=== PATIENT | male | born 1965 | race Caucasian/White ===

== ENCOUNTER 2017-02-16 07:00 | Outpatient (CLI) | payer OTHER ==
[2017-02-16 09:12] LABS: ALBUMIN 4.2 g/dL (3.4-5.0); CALCIUM 9.5 mg/dL (8.5-10.1); CARBON DIOXIDE 28.6 mmol/L (21-32); CREATININE 0.8 mg/dL (0.6-1.3); POTASSIUM 4.6 mmol/L (3.5-5.1); THYROID STIMULATING HORMONE 3.36 uIU/mL (0.34-3.76); TOTAL BILIRUBIN 0.6 mg/dL (0.0-1.0); TOTAL PROTEIN, SERUM 8.1 g/dL (6.4-8.2)
== END 2017-02-16 21:40 | disposition home or self-care (01) ==
LOC: MLB 07:00
PROVIDERS: ATTEND Internal Medicine Geriatric Medicine
DX: I10 Essential (primary) hypertension (principal); E11.9 Type 2 diabetes mellitus without complications; E78.5 Hyperlipidemia, unspecified
CPT/HCPCS: 36415; 80053; 82306; 83036; 84443

== ENCOUNTER 2017-07-11 10:26 | Inpatient (IN) | payer OTHER ==
[~2017-07-11] VITALS: Ht 167.6 cm; Wt 88.5 kg
[2017-07-11 10:31] VITALS: BP 156/96
--- NOTE | 2017-07-11 10:45 | NUR ---
52/M PRESENT TO ER C/O GENERALIZED WEAKNESS x 10 DAYS. DENIES N/V/D; SKIN IS PINK/WARM/DRY; AAOX4 WITH EVEN AND STEADY GAIT; LUNGS CLEAR BL; HR EVEN AND REGULAR; PT DENIES ANY FEVER, CP, SOB, OR COUGH AT THIS TIME; PATIENT STATES PAIN OF 0/10 AT THIS TIME; VSS; PATIENT POSITIONED FOR COMFORT; HOB ELEVATED; BEDRAILS UP X2; BED DOWN. ER MADE AWARE OF PT STATUS. Addendum: 07/11/17 at 1208 by [email or web address] PT STS CHEST PAIN THIS MORNING BUT WHEN ARRIVAL DENIES CHEST PAIN.
--- NOTE | 2017-07-11 10:48 | NUR ---
Patient being evaluated by DR THORNTON at bedside.
[2017-07-11] MEDS ORDERED: ASPIRIN 325 MG TAB PO ONE (10:55)
[2017-07-11] MEDS ORDERED: NACL 0.9% 1,000 ML IV ONE (10:55)
--- NOTE | 2017-07-11 11:00 | NUR ---
X RAY AT BEDSIDE.
--- NOTE | 2017-07-11 11:05 | NUR ---
INSERTED IV CATH 20G RAC;PT TOLERATED PROCEDUR WELL.IV PATENT& INTACT.
--- NOTE | 2017-07-11 11:05 | NUR ---
LAB AT BEDSIDE.
[2017-07-11 11:14] LABS: BASOPHILS # (AUTO) 0.1 K/uL (0.00-0.22); BASOPHILS % (AUTO) 1.3 % (0.0-2.0); EOSINOPHILS # (AUTO) 0.1 K/uL (0-0.4); EOSINOPHILS % (AUTO) 1.2 % (0.0-4.0); HEMATOCRIT 54.9 % (36-52); HEMOGLOBIN 17.5 g/dL (12.0-18.0); LYMPHOCYTES # (AUTO) 3.1 K/uL (2.0-11.5); LYMPHOCYTES % (AUTO) 35.5 % (20.5-51.1); MEAN CORPUSCULAR HEMOGLOBIN 29 pg (27-31); MEAN CORPUSCULAR HGB CONC 32 g/dL (33-37); MEAN CORPUSCULAR VOLUME 92 fL (80-94); MONOCYTES # (AUTO) 0.6 K/uL (0.8-1.0); MONOCYTES % (AUTO) 6.9 % (1.7-9.3); NEUTROPHILS # (AUTO) 4.8 K/uL (1.8-7.7); NEUTROPHILS % (AUTO) 55.1 % (42.2-75.2); PLATELET COUNT (AUTO) 234 K/uL (140-450); RED BLOOD CELL COUNT(AUTO) 5.98 MIL/uL (4.20-6.10); RED CELL DISTRIBUTION WIDTH 12.5 % (11.6-13.7); WHITE BLOOD COUNT (AUTO) 8.7 K/uL (4.8-10.8)
--- NOTE | 2017-07-11 11:16 | NUR ---
Patient appears to be resting comfortably in bed. BP145/78;DENIES HEADACHE OR DIZZINESS AT THIS TIME. Respirations even and unlabored.WILL CONTINUE TO MONITOR.
[2017-07-11 11:27] LABS: ANION GAP 15.5 (8-16); CARBON DIOXIDE 26.6 mmol/L (21-32); CREATININE 0.9 mg/dL (0.7-1.3); POTASSIUM 4.1 mmol/L (3.5-5.1)
[2017-07-11 11:33] LABS: ALBUMIN 4.3 g/dL (3.4-5.0); TOTAL BILIRUBIN 0.5 mg/dL (0.0-1.0)
[2017-07-11 11:45] LABS: CREATINE KINASE MB 0.8 ng/mL (0-3.6)
--- NOTE | 2017-07-11 11:47 | NUR ---
Patient being reevaluated by DR THORNTON at bedside.
--- NOTE | 2017-07-11 12:12 | NUR ---
GAVE REPORT TO BLOSSOM SÁNCHEZ.
--- NOTE | 2017-07-11 12:12 | NUR ---
Patient will be admitted to care of DR BILLINGSLEY. Admited to TELE. Will go to [id number]. Belongings list completed. Report to BLOSSOM SÁNCHEZ.
[2017-07-11] MEDS ORDERED: METF500T PO (12:18)
[2017-07-11] MEDS ORDERED: LISI30TA6 PO (12:18)
--- NOTE | 2017-07-11 12:20 | NUR ---
RECEIVED REPORT FROM ER NURSE VIA TELEPHONE. WILL GET ROOM READY AND AWAIT FOR PT ARRIVAL TO ROOM 114.
[2017-07-11] MEDS: NACL 0.9% 1,000 ML IV SCH ×2 (12:37→22:37)
[2017-07-11] MEDS ORDERED: NITROGLYCERIN 0.4 MG TAB SL PRN (12:40)
[2017-07-11] MEDS ORDERED: DEXTROSE 50% 50 ML SYR IVP PRN (12:40)
[2017-07-11] MEDS ORDERED: ONDANSETRON 4 MG/2 ML VIAL IVP PRN (12:40)
[2017-07-11] MEDS ORDERED: HYDROcodone/APAP 7.5/325 MG 1 TAB PO PRN (12:40)
[2017-07-11] MEDS ORDERED: ACETAMINOPHEN 325 MG TAB PO PRN (12:40)
[2017-07-11] MEDS ORDERED: ATORVASTATIN 20 MG TAB PO SCH (13:00)
[2017-07-11 13:10] LABS: PROTHROMBIN TIME 10.6 secs (10.8-13.4)
[2017-07-11 13:18] LABS: FREE T4 (FREE THYROXINE) 1.24 ng/dL (0.76-1.46); MAGNESIUM 2.2 mg/dL (1.8-2.4); PHOSPHORUS 5.5 mg/dL (2.5-4.9); THYROID STIMULATING HORMONE 3.11 uIU/mL (0.34-3.74)
--- NOTE | 2017-07-11 13:30 | NUR ---
PT ARRIVED TO UNIT VIA GURNEY FROM ER ACCOMPANIED BY RN AND TECH. PT AMBULATED TO BED WITH STANDBY ASSIST. PT IS AAOX4. INTRODUCED SELF AND UPDATED BOARD. ID BAND ON AND TELE MONITOR APPLIED. MRSA OF NARES OBTAINED. VS: WNL. PT DENIES CHEST PAIN AT THIS TIME.
[2017-07-11 14:00] VITALS: BP 132/81
[2017-07-11] MEDS ORDERED: CALCIUM ACETATE 667 MG TAB PO SCH (14:51)
--- NOTE | 2017-07-11 15:57 | NUR ---
PT IN ROOM WITH RESEARCH CENTER DIRECTOR RIGHT NOW. PT IS NOT IN ANY DISTRESS AT THIS TIME. WILL CONTINUE TO MONITOR.
[2017-07-11] MEDS: metFORMIN 500 MG TAB PO SCH (17:19)
[2017-07-11] MEDS: BLOOD GLUCOSE MONITORING 1 DEV DEV FS SCH ×2 (17:19→20:30)
[2017-07-11] MEDS: METOPROLOL 25 MG TAB PO SCH (17:19)
--- NOTE | 2017-07-11 17:19 | NUR ---
OBTAINED URINE SAMPLE. PT VOIDED 350ML. PT IS REQUESTING TO EAT DINNER. INFORMED THAT TRAY WILL BE ARRIVING. ADMINISTERED MEDS. PT TOLERATED WELL. PT DENIES CHEST PAIN AT THIS TIME. WILL CONTINUE TO MONITOR.
--- NOTE | 2017-07-11 19:25 | NUR ---
ENDORSED PT TO AIRPLANE DISPATCHER NURSE AT BEDSIDE FOR CONTINUITY OF CARE. PT IN STABLE CONDITION. VISITOR AT BEDSIDE.
--- NOTE | 2017-07-11 19:26 | NUR ---
RECEIVED REPORT FROM AM NURSE. PT IS AOX4, ABLE TO MAKE NEEDS KNOWN. WITH RESPIRATIONS CLEAR AND UNLABORED. NO COMPLAINTS OF PAIN AT THIS TIME. WITH AN IV TO THE R HAND, INTACT AND PATENT. INITIAL ASSESSMENT DONE. REORIENTED PT TO THE UNIT, VERBALIZED UNDERSTANDING. WILL CONTINUE TO MONITOR. ALL NEEDS ATTENDED. CALL LIGHT WITHIN REACH. SAFETY CHECKS IN PLACE.
[2017-07-11 19:40] LABS: BILIRUBIN,URINE NEGATIVE (NEGATIVE); BLOOD, URINE NEGATIVE (NEGATIVE); COLOR,URINE YELLOW (YELLOW); LEUKOCYTE ESTERASE ,URINE NEGATIVE (NEGATIVE); NITRITE, URINE NEGATIVE (NEGATIVE); UGLUCOSE 3+ (NEGATIVE)
[2017-07-11 19:41] LABS: APPEARANCE,URINE CLEAR (CLEAR)
[2017-07-11 20:00] VITALS: BP 139/89
[2017-07-11] MEDS: DOCUSATE SODIUM 100 MG GELCAP PO SCH (20:27)
[2017-07-11] MEDS: INSULIN LISPRO SLIDING SCALE 100 UNITS/ML VIAL SUBQ PRN (20:28)
--- NOTE | 2017-07-11 20:30 | NUR ---
DUE MEDS GIVEN, WELL TOLERATED BY PATIENT. WILL CONTINUE TO MONITOR FOR ANY CHANGES.
[2017-07-11] MEDS ORDERED: LORazepam 0.5 MG TAB PO SCH (22:50)
[2017-07-12] VITALS: BP 131/91
--- NOTE | 2017-07-12 | NUR ---
VITALS STABLE. NO S/S OF DISTRESS. NO COMPLAINTS OF PAIN. WILL CONTINUE TO MONITOR FOR ANY CHANGES.
[2017-07-12] MEDS: NACL 0.9% 1,000 ML IV SCH (01:16)
[2017-07-12 04:00] VITALS: BP 132/68
--- NOTE | 2017-07-12 04:00 | NUR ---
VITALS STABLE. NO S/S OF DISTRESS. NO COMPLAINTS OF PAIN. SCD'S APPLIED.
[2017-07-12 06:12] LABS: BASOPHILS # (AUTO) 0.4 K/uL (0.00-0.22); BASOPHILS % (AUTO) 4.3 % (0.0-2.0); EOSINOPHILS # (AUTO) 0.2 K/uL (0-0.4); EOSINOPHILS % (AUTO) 2.2 % (0.0-4.0); HEMATOCRIT 48.4 % (36-52); HEMOGLOBIN 16.2 g/dL (12.0-18.0); LYMPHOCYTES # (AUTO) 2.8 K/uL (2.0-11.5); MEAN CORPUSCULAR HEMOGLOBIN 31 pg (27-31); MEAN CORPUSCULAR HGB CONC 33 g/dL (33-37); MEAN CORPUSCULAR VOLUME 91 fL (80-94); MONOCYTES # (AUTO) 0.8 K/uL (0.8-1.0); MONOCYTES % (AUTO) 9.3 % (1.7-9.3); NEUTROPHILS % (AUTO) 50.2 % (42.2-75.2); PLATELET COUNT (AUTO) 213 K/uL (140-450); RED BLOOD CELL COUNT(AUTO) 5.29 MIL/uL (4.20-6.10); RED CELL DISTRIBUTION WIDTH 12.6 % (11.6-13.7); WHITE BLOOD COUNT (AUTO) 8.2 K/uL (4.8-10.8)
[2017-07-12] MEDS: INSULIN LISPRO SLIDING SCALE 100 UNITS/ML VIAL SUBQ PRN (06:22)
--- NOTE | 2017-07-12 06:22 | NUR ---
CHECKED BLOOD SUGAR - 154. GAVE 2 UNITS INSULIN, DUE MEDS GIVEN, WELL TOLERATED BY PT. WILL CONTINUE TO MONITOR FOR ANY CHANGES.
[2017-07-12] MEDS ORDERED: PANTOPRAZOLE 40 MG TABEC PO SCH (06:30)
[2017-07-12] MEDS: BLOOD GLUCOSE MONITORING 1 DEV DEV FS SCH ×2 (06:30→11:30)
[2017-07-12 06:37] LABS: CARBON DIOXIDE 25.1 mmol/L (21-32); CREATININE 0.7 mg/dL (0.7-1.3); POTASSIUM 4.1 mmol/L (3.5-5.1)
[2017-07-12 06:54] LABS: CHOL/HDL RATIO 8.1 (1-4.5); PHOSPHORUS 5.4 mg/dL (2.5-4.9)
--- NOTE | 2017-07-12 07:10 | NUR ---
ENDORSED TO AM SHIFT NURSE FOR CONTINUITY OF CARE, IN STABLE CONDITION.
--- NOTE | 2017-07-12 07:13 | NUR ---
RECEIVED REPORT FROM SMALL ENGINE TECHNICIAN NURSE, PT IS A/OX4, AMBULATORY, IV IS ON THE RT HAND, PATENT, INTACT, FLUSHING WELL, NO S/S OF RESPIRATORY OR DISTRESS NOTED, DISCUSSED PLAN OF CARE WITH PT, PT VERBALIZED UNDERSTANDING, SAFETY/FALL PRECAUTIONS ARE IN PLACE, CALL LIGHT WITHIN REACH, WILL CONTINUE TO MONITOR.
[2017-07-12 08:00] VITALS: BP 145/90
--- NOTE | 2017-07-12 08:15 | NUR ---
PATIENT HAS BEEN SCREENED AND CATEGORIZED MODERATE NUTRITION RISK. PATIENT WILL BE SEEN WITHIN 3-5 DAYS OF ADMISSION. 07/14/17-07/16/[address]
[2017-07-12] MEDS: METOPROLOL 25 MG TAB PO SCH (08:46)
[2017-07-12] MEDS: metFORMIN 500 MG TAB PO SCH (08:46)
--- NOTE | 2017-07-12 08:46 | NUR ---
DUE MEDICATIONS GIVEN, PT TOLERATED WELL, CALL LIGHT WITHIN REACH.
[2017-07-12] MEDS: DOCUSATE SODIUM 100 MG GELCAP PO SCH (08:47)
[2017-07-12] MEDS ORDERED: ECOTRIN 81 MG TABEC PO SCH (09:00)
[2017-07-12] MEDS ORDERED: LISINOPRIL 10 MG TAB PO SCH (09:00)
[2017-07-12] MEDS ORDERED: ATORVASTATIN 20 MG TAB PO SCH (09:00)
--- NOTE | 2017-07-12 10:30 | NUR ---
PT RESTING IN BED AT THIS TIME, CALL LIGHT WITHIN REACH.
[2017-07-12 12:00] VITALS: BP 131/79
--- NOTE | 2017-07-12 12:00 | NUR ---
PT OFF UNIT TO HAVE STRESS TEST DONE.
[2017-07-12] MEDS ORDERED: METO25TA PO (13:35)
[2017-07-12] MEDS ORDERED: ATOR20TA40 PO (13:35)
[2017-07-12] MEDS ORDERED: ASPI81TA28 PO (13:35)
--- NOTE | 2017-07-12 14:30 | NUR ---
PT RETURNED TO UNIT FROM STRESS TEST. PT BLOOD GLUCOSE PENDING, PT DID NOT WANT BLOOD GLUCOSE CHECKED.
--- NOTE | 2017-07-12 14:30 | NUR ---
STRESS DONE. PATIENT BACK TO HIS ROOM IN STABLE CONDITION
--- NOTE | 2017-07-12 14:52 | NUR ---
STRESS TEST DONE
--- NOTE | 2017-07-12 14:55 | NUR ---
DISCHARGE INSTRUCTIONS GIVEN, ID WRIST BAND REMOVED, IV REMOVED, CATHETER TIP INTACT. PT STABLE UPON DISCHARGE.
== END 2017-07-12 15:00 | disposition home or self-care (01) | DRG 392 ==
LOC: MED 10:26 → MTU 12:14
PROVIDERS: ADMIT Family Medicine; ATTEND Family Medicine
DX: K21.9 Gastro-esophageal reflux disease without esophagitis (principal); E11.65 Type 2 diabetes mellitus with hyperglycemia; K76.0 Fatty (change of) liver, not elsewhere classified; G90.9 Disorder of the autonomic nervous system, unspecified; E83.39 Other disorders of phosphorus metabolism; I10 Essential (primary) hypertension; I73.9 Peripheral vascular disease, unspecified; E78.5 Hyperlipidemia, unspecified; R42 Dizziness and giddiness; R53.1 Weakness; R74.0 Nonspecific elevation of levels of transaminase and lactic acid dehydrogenase [LDH]; Z86.73 Personal history of transient ischemic attack (TIA), and cerebral infarction without residual deficits; Z90.49 Acquired absence of other specified parts of digestive tract
CPT/HCPCS: 36415; 70450; 71010; 76705; 80048; 80053; 81003; 82550; 82553; 82948; 83036; 83690; 83735; 83880; 84100; 84439; 84443; 84484; 85025; 85379; 85610; 85730; 87081; 87086; 93005; 93017; 93880; 93925; 93970; 96360; 99285; J1815; J7030; Q0092

== ENCOUNTER 2017-12-17 06:48 | Outpatient (CLI) | payer OTHER ==
[~2017-12-17 06:48] MED LIST: ASPI-1173 PO; ATOR20TA40 PO; LISI30TA6 PO; METF500T PO; METO25TA PO
[2017-12-17 07:30] LABS: BASOPHILS # (AUTO) 0.4 K/uL (0.00-0.22); BASOPHILS % (AUTO) 4.8 % (0.0-2.0); EOSINOPHILS # (AUTO) 0.2 K/uL (0-0.4); EOSINOPHILS % (AUTO) 1.9 % (0.0-4.0); HEMATOCRIT 49.2 % (36-52); HEMOGLOBIN 16.3 g/dL (12.0-18.0); LYMPHOCYTES # (AUTO) 2.5 K/uL (2.0-11.5); LYMPHOCYTES % (AUTO) 27.8 % (20.5-51.1); MEAN CORPUSCULAR HEMOGLOBIN 30 pg (27-31); MEAN CORPUSCULAR HGB CONC 33 g/dL (33-37); MEAN CORPUSCULAR VOLUME 91 fL (80-94); MONOCYTES # (AUTO) 0.8 K/uL (0.8-1.0); MONOCYTES % (AUTO) 9.1 % (1.7-9.3); NEUTROPHILS # (AUTO) 5.2 K/uL (1.8-7.7); NEUTROPHILS % (AUTO) 56.4 % (42.2-75.2); PLATELET COUNT (AUTO) 227 K/uL (140-450); RED BLOOD CELL COUNT(AUTO) 5.42 MIL/uL (4.20-6.10); RED CELL DISTRIBUTION WIDTH 12.5 % (11.6-13.7); WHITE BLOOD COUNT (AUTO) 9.1 K/uL (4.8-10.8)
[2017-12-17 08:08] LABS: ALBUMIN 3.9 g/dL (3.4-5.0); ANION GAP 13.8 (8-16); CARBON DIOXIDE 26.4 mmol/L (21-32); CHOL/HDL RATIO 4.1 (1-4.5); CREATININE 0.8 mg/dL (0.7-1.3); POTASSIUM 4.2 mmol/L (3.5-5.1); TOTAL BILIRUBIN 0.5 mg/dL (0.0-1.0)
[2017-12-18 10:08] LABS: MICROALBUMIN, UR RANDOM 7.9 ug/mL (Not Estab.)
== END 2017-12-17 19:45 | disposition home or self-care (01) ==
LOC: MLB 06:48
PROVIDERS: ATTEND Internal Medicine Geriatric Medicine
DX: E11.9 Type 2 diabetes mellitus without complications (principal); E78.5 Hyperlipidemia, unspecified; R74.0 Nonspecific elevation of levels of transaminase and lactic acid dehydrogenase [LDH]; E55.9 Vitamin D deficiency, unspecified
CPT/HCPCS: 36415; 80053; 82043; 82306; 83036; 84154; 85025

== ENCOUNTER 2018-04-22 06:48 | Outpatient (CLI) | payer OTHER ==
[2018-04-22 07:07] LABS: BASOPHILS # (AUTO) 0.1 K/uL (0.00-0.22); BASOPHILS % (AUTO) 0.7 % (0.0-2.0); EOSINOPHILS # (AUTO) 0.2 K/uL (0-0.4); EOSINOPHILS % (AUTO) 1.9 % (0.0-4.0); HEMATOCRIT 47.3 % (36-52); LYMPHOCYTES # (AUTO) 3.1 K/uL (2.0-11.5); LYMPHOCYTES % (AUTO) 37.9 % (20.5-51.1); MEAN CORPUSCULAR HEMOGLOBIN 31 pg (27-31); MEAN CORPUSCULAR HGB CONC 34 g/dL (33-37); MEAN CORPUSCULAR VOLUME 90.9 fL (80-94); MONOCYTES # (AUTO) 0.7 K/uL (0.8-1.0); MONOCYTES % (AUTO) 8.2 % (1.7-9.3); NEUTROPHILS # (AUTO) 4.2 K/uL (1.8-7.7); NEUTROPHILS % (AUTO) 51.3 % (42.2-75.2); PLATELET COUNT (AUTO) 217 K/uL (140-450); RED CELL DISTRIBUTION WIDTH 13.4 % (11.6-13.7); WHITE BLOOD COUNT (AUTO) 8.2 K/uL (4.8-10.8)
[2018-04-22 07:20] LABS: APPEARANCE,URINE HAZY (CLEAR); BILIRUBIN,URINE NEGATIVE (NEGATIVE); BLOOD, URINE NEGATIVE (NEGATIVE); COLOR,URINE YELLOW (YELLOW); LEUKOCYTE ESTERASE ,URINE NEGATIVE (NEGATIVE); NITRITE, URINE NEGATIVE (NEGATIVE); UGLUCOSE NEGATIVE (NEGATIVE)
[2018-04-22 07:30] LABS: ANION GAP 14.4 (8-16); CARBON DIOXIDE 27.7 mmol/L (21-32); CREATININE 0.9 mg/dL (0.7-1.3); POTASSIUM 4.1 mmol/L (3.5-5.1); TOTAL BILIRUBIN 0.6 mg/dL (0.0-1.0)
== END 2018-04-22 19:34 | disposition home or self-care (01) ==
LOC: MLB 06:48
PROVIDERS: ATTEND Internal Medicine Geriatric Medicine
DX: E11.9 Type 2 diabetes mellitus without complications (principal); E73.9 Lactose intolerance, unspecified; E78.5 Hyperlipidemia, unspecified; I10 Essential (primary) hypertension; K21.9 Gastro-esophageal reflux disease without esophagitis
CPT/HCPCS: 36415; 80053; 81003; 83036; 83690; 85025

== ENCOUNTER 2018-07-08 07:01 | Outpatient (CLI) | payer OTHER ==
[2018-07-08 08:10] LABS: ALBUMIN 3.6 g/dL (3.4-5.0); CARBON DIOXIDE 29.3 mmol/L (21-32); CHOL/HDL RATIO 3.8 (1-4.5); CREATININE 0.8 mg/dL (0.7-1.3); POTASSIUM 4.3 mmol/L (3.5-5.1); TOTAL BILIRUBIN 0.4 mg/dL (0.0-1.0)
== END 2018-07-08 22:14 | disposition home or self-care (01) ==
LOC: MLB 07:01
PROVIDERS: ATTEND Internal Medicine Geriatric Medicine
DX: E11.9 Type 2 diabetes mellitus without complications (principal); E78.5 Hyperlipidemia, unspecified; I10 Essential (primary) hypertension
CPT/HCPCS: 36415; 80053; 83036

== ENCOUNTER 2019-01-31 13:12 | Emergency (ER) | payer OTHER ==
[~2019-01-31] VITALS: Ht 167.6 cm; Wt 86.2 kg
[2019-01-31 13:12] VITALS: BP 151/84
--- NOTE | 2019-01-31 13:12 | NUR ---
PATIENT AMBULATED TO ER CHAIR E.
--- NOTE | 2019-01-31 13:44 | NUR ---
Patient transferred to bed 8 for further care. RN evaluating patient at bedside.
--- NOTE | 2019-01-31 13:50 | NUR ---
PT IS A 53 Y/O MALE WHO PRESENTS TO THE ED C/O HIGH BLOOD SUGAR SINCE TODAY. WAS 243 ON TRIAGE. PT DENIES PAIN AT THIS TIME. PT DENIES CP, SOB, N/V/D. PT AWAKE AND ALERT, RR EVEN/UNLABORED.PT REPOSITIONED FOR COMFORT, BED IN LOWEST POSITION. ER MD DR. ARAGON NOTIFIED. WILL CONTINUE TO MONITOR. PMH---HTN, PRE-DM (243 ON TRIAGE) NKA
[2019-01-31 14:10] LABS: BASOPHILS # (AUTO) 0.1 K/uL (0.00-0.22); BASOPHILS % (AUTO) 0.6 % (0.0-2.0); EOSINOPHILS # (AUTO) 0.2 K/uL (0-0.4); EOSINOPHILS % (AUTO) 2.1 % (0.0-4.0); HEMATOCRIT 46.9 % (36-52); HEMOGLOBIN 15.9 g/dL (12.0-18.0); LYMPHOCYTES # (AUTO) 3.5 K/uL (2.0-11.5); LYMPHOCYTES % (AUTO) 39.5 % (20.5-51.1); MEAN CORPUSCULAR HEMOGLOBIN 31 pg (27-31); MEAN CORPUSCULAR HGB CONC 34 g/dL (33-37); MEAN CORPUSCULAR VOLUME 90.1 fL (80-94); MONOCYTES # (AUTO) 0.7 K/uL (0.8-1.0); NEUTROPHILS # (AUTO) 4.3 K/uL (1.8-7.7); NEUTROPHILS % (AUTO) 49.8 % (42.2-75.2); PLATELET COUNT (AUTO) 250 K/uL (140-450); RED BLOOD CELL COUNT(AUTO) 5.21 MIL/uL (4.20-6.10); RED CELL DISTRIBUTION WIDTH 13.6 % (11.6-13.7); WHITE BLOOD COUNT (AUTO) 8.7 K/uL (4.8-10.8)
[2019-01-31 15:01] LABS: ALBUMIN 3.9 g/dL (3.4-5.0); ANION GAP 13.9 (8-16); CARBON DIOXIDE 28.7 mmol/L (21-32); CREATININE 0.9 mg/dL (0.7-1.3); POTASSIUM 4.6 mmol/L (3.5-5.1); TOTAL BILIRUBIN 0.4 mg/dL (0.0-1.0)
[2019-01-31 15:05] LABS: APPEARANCE,URINE CLEAR (CLEAR); BILIRUBIN,URINE NEGATIVE (NEGATIVE); BLOOD, URINE NEGATIVE (NEGATIVE); LEUKOCYTE ESTERASE ,URINE NEGATIVE (NEGATIVE); NITRITE, URINE NEGATIVE (NEGATIVE); PH,URINE 5.5 (5.0-9.0); UGLUCOSE 1+ (NEGATIVE)
[2019-01-31 15:11] LABS: COLOR,URINE STRAW (YELLOW)
[2019-01-31 15:33] VITALS: BP 148/80
--- NOTE | 2019-01-31 15:33 | NUR ---
Patient discharged with v/s stable. Written and verbal after care instructions given and explained. Patient verbalized understanding. Ambulatory with steady gait. All questions addressed prior to discharge. Advised to follow up with PMD.
== END 2019-01-31 15:33 | disposition home or self-care (01) ==
LOC: MED 13:12
DX: E11.65 Type 2 diabetes mellitus with hyperglycemia (principal); I10 Essential (primary) hypertension; Z79.84 Long term (current) use of oral hypoglycemic drugs; Z79.82 Long term (current) use of aspirin; Z79.899 Other long term (current) drug therapy
CPT/HCPCS: 36415; 80053; 81003; 82803; 85025; 99283

== ENCOUNTER 2019-05-12 05:54 | Outpatient (CLI) | payer OTHER ==
[2019-05-12 07:39] LABS: BASOPHILS # (AUTO) 0.1 K/uL (0.00-0.22); BASOPHILS % (AUTO) 0.7 % (0.0-2.0); EOSINOPHILS # (AUTO) 0.2 K/uL (0-0.4); EOSINOPHILS % (AUTO) 2.3 % (0.0-4.0); HEMATOCRIT 47.9 % (36-52); HEMOGLOBIN 16.3 g/dL (12.0-18.0); LYMPHOCYTES # (AUTO) 2.7 K/uL (2.0-11.5); LYMPHOCYTES % (AUTO) 33.2 % (20.5-51.1); MEAN CORPUSCULAR HEMOGLOBIN 31 pg (27-31); MEAN CORPUSCULAR HGB CONC 34 g/dL (33-37); MEAN CORPUSCULAR VOLUME 90.2 fL (80-94); MONOCYTES # (AUTO) 0.6 K/uL (0.8-1.0); MONOCYTES % (AUTO) 7.5 % (1.7-9.3); NEUTROPHILS # (AUTO) 4.6 K/uL (1.8-7.7); NEUTROPHILS % (AUTO) 56.3 % (42.2-75.2); PLATELET COUNT (AUTO) 244 K/uL (140-450); RED BLOOD CELL COUNT(AUTO) 5.31 MIL/uL (4.20-6.10); RED CELL DISTRIBUTION WIDTH 13.8 % (11.6-13.7); WHITE BLOOD COUNT (AUTO) 8.1 K/uL (4.8-10.8)
[2019-05-12 08:35] LABS: ANION GAP 14.4 (8-16); CARBON DIOXIDE 24.9 mmol/L (21-32); CHOL/HDL RATIO 5.6 (1-4.5); CREATININE 0.8 mg/dL (0.7-1.3); POTASSIUM 4.3 mmol/L (3.5-5.1); TOTAL BILIRUBIN 0.6 mg/dL (0.0-1.0)
[2019-05-13 08:06] LABS: MICROALBUMIN, UR RANDOM 14.8 ug/mL (Not Estab.)
== END 2019-05-12 21:00 | disposition home or self-care (01) ==
LOC: MLB 05:54
PROVIDERS: ATTEND Internal Medicine Geriatric Medicine
DX: Z12.11 Encounter for screening for malignant neoplasm of colon (principal); E11.9 Type 2 diabetes mellitus without complications; E55.9 Vitamin D deficiency, unspecified; E78.5 Hyperlipidemia, unspecified
CPT/HCPCS: 36415; 80053; 82043; 82272; 83036; 85025

== ENCOUNTER 2019-08-30 11:06 | Emergency (ER) | payer OTHER ==
[~2019-08-30] VITALS: Ht 167.6 cm; Wt 86.2 kg
[2019-08-30 11:12] VITALS: BP 139/84
--- NOTE | 2019-08-30 11:23 | NUR ---
54 Y/O M PRESENTED TO ER FOR NAUSEA AND DIZZINESS. WHILE AT WORK PT TOOK AN "UNKNOWN" MEDICATION FOR CHEST CONGESTION. AFTER TAKING MEDICATION PT STARTED FEELING DIZZY. HE ATE A SALAD, AND IMMEDIATELY VOMITED AFTER EATING. PT FEELS WEAK AND "NOT RIGHT." PT STILL FEELS NAUSEA. DENIES ANY PAIN, PAIN 0/10. BLOOD SUGAR 289. HOB ELEVATED, BED IN LOWEST POSITION, SIDE RAIL UP X1. ERMD MADE AWARE OF PT STATUS. ALLERGIES: NKA. MED HX: DM AND HTN
--- NOTE | 2019-08-30 11:50 | NUR ---
DR. ROJAS AT PT BEDSIDE.
[2019-08-30] MEDS ORDERED: ASPIRIN 81 MG TAB.CHEW PO ONE (12:20)
--- NOTE | 2019-08-30 13:17 | NUR ---
LAB AT BEDSIDE
--- NOTE | 2019-08-30 13:22 | NUR ---
PT RESTING IN BED ON CELL PHONE. VSS. WILL CONTINUE TO MONITOR.
[2019-08-30 13:37] LABS: BASOPHILS % (AUTO) 0.5 % (0.0-2.0); EOSINOPHILS # (AUTO) 0.1 K/uL (0-0.4); EOSINOPHILS % (AUTO) 1.2 % (0.0-4.0); HEMATOCRIT 45.8 % (36-52); HEMOGLOBIN 15.4 g/dL (12.0-18.0); LYMPHOCYTES # (AUTO) 2.1 K/uL (2.0-11.5); LYMPHOCYTES % (AUTO) 25.5 % (20.5-51.1); MEAN CORPUSCULAR HEMOGLOBIN 31 pg (27-31); MEAN CORPUSCULAR HGB CONC 34 g/dL (33-37); MEAN CORPUSCULAR VOLUME 91.7 fL (80-94); MONOCYTES # (AUTO) 0.7 K/uL (0.8-1.0); NEUTROPHILS # (AUTO) 5.4 K/uL (1.8-7.7); NEUTROPHILS % (AUTO) 64.8 % (42.2-75.2); PLATELET COUNT (AUTO) 230 K/uL (140-450); RED CELL DISTRIBUTION WIDTH 13.5 % (11.6-13.7); WHITE BLOOD COUNT (AUTO) 8.3 K/uL (4.8-10.8)
--- NOTE | 2019-08-30 13:37 | NUR ---
CALLED DIETARY TO FOLLOW UP WITH DIABETIC DIET
[2019-08-30 13:51] LABS: CARBON DIOXIDE 28.3 mmol/L (21-32); CREATININE 0.8 mg/dL (0.7-1.3); POTASSIUM 4.3 mmol/L (3.5-5.1)
--- NOTE | 2019-08-30 14:15 | NUR ---
PT RESTING IN BED WITH EYES CLOSED, EASILY ARROUSABLE. VSS. WILL CONTINUE TO MONITOR.
[2019-08-30 15:00] VITALS: BP 128/81
--- NOTE | 2019-08-30 15:00 | NUR ---
Patient discharged with v/s stable. Written and verbal after care instructions given and explained. Patient verbalized understanding. Ambulatory with steady gait. Work excuse provided for today. All questions addressed prior to discharge. Advised to follow up with PMD.
== END 2019-08-30 15:00 | disposition home or self-care (01) ==
LOC: MED 11:06
DX: R11.2 Nausea with vomiting, unspecified (principal); T50.905A Adverse effect of unspecified drugs, medicaments and biological substances, initial encounter; Y92.238 Other place in hospital as the place of occurrence of the external cause; E11.9 Type 2 diabetes mellitus without complications; I10 Essential (primary) hypertension; Z79.84 Long term (current) use of oral hypoglycemic drugs; Z79.899 Other long term (current) drug therapy
CPT/HCPCS: 36415; 71045; 80048; 84484; 85025; 93005; 99284; Q0092

== ENCOUNTER 2019-11-10 06:13 | Outpatient (CLI) | payer OTHER ==
[2019-11-10 08:28] LABS: ALBUMIN 3.9 g/dL (3.4-5.0); ANION GAP 12.2 (8-16); CARBON DIOXIDE 28.9 mmol/L (21-32); CREATININE 0.8 mg/dL (0.7-1.3); POTASSIUM 4.1 mmol/L (3.5-5.1); TOTAL BILIRUBIN 0.7 mg/dL (0.0-1.0)
== END 2019-11-10 20:10 | disposition home or self-care (01) ==
LOC: MLB 06:13
DX: E11.65 Type 2 diabetes mellitus with hyperglycemia (principal); I10 Essential (primary) hypertension
CPT/HCPCS: 36415; 80053; 83036

== ENCOUNTER → 2020-02-23 | Outpatient (CLI) | payer OTHER ==
[2020-02-23 07:32] LABS: BASOPHILS # (AUTO) 0.1 K/uL (0.00-0.22); BASOPHILS % (AUTO) 0.6 % (0.0-2.0); EOSINOPHILS # (AUTO) 0.1 K/uL (0-0.4); EOSINOPHILS % (AUTO) 1.3 % (0.0-4.0); HEMATOCRIT 48.4 % (36-52); HEMOGLOBIN 16.1 g/dL (12.0-18.0); LYMPHOCYTES # (AUTO) 3.3 K/uL (2.0-11.5); LYMPHOCYTES % (AUTO) 36.8 % (20.5-51.1); MEAN CORPUSCULAR HEMOGLOBIN 30 pg (27-31); MEAN CORPUSCULAR HGB CONC 33 g/dL (33-37); MEAN CORPUSCULAR VOLUME 88.9 fL (80-94); MONOCYTES # (AUTO) 0.6 K/uL (0.8-1.0); MONOCYTES % (AUTO) 6.9 % (1.7-9.3); NEUTROPHILS # (AUTO) 4.9 K/uL (1.8-7.7); NEUTROPHILS % (AUTO) 54.4 % (42.2-75.2); PLATELET COUNT (AUTO) 218 K/uL (140-450); RED BLOOD CELL COUNT(AUTO) 5.44 MIL/uL (4.20-6.10); RED CELL DISTRIBUTION WIDTH 13.8 % (11.6-13.7)
[2020-02-23 07:49] LABS: ALBUMIN 3.7 g/dL (3.4-5.0); ANION GAP 11.5 (8-16); CARBON DIOXIDE 30.9 mmol/L (21-32); CHOL/HDL RATIO 4.4 (1-4.5); CREATININE 0.9 mg/dL (0.6-1.3); POTASSIUM 4.4 mmol/L (3.5-5.1); TOTAL BILIRUBIN 0.6 mg/dL (0.0-1.0)
[2020-02-24 09:09] LABS: MICROALBUMIN, UR RANDOM 30.3 ug/mL (Not Estab.); PROSTATE SPEC AG TOTAL 0.6 ng/mL (0.0-4.0)
== END | disposition home or self-care (01) ==
LOC: MLB 06:27
PROVIDERS: ATTEND Family Medicine
DX: I10 Essential (primary) hypertension (principal); E55.9 Vitamin D deficiency, unspecified; E11.65 Type 2 diabetes mellitus with hyperglycemia; Z12.9 Encounter for screening for malignant neoplasm, site unspecified
CPT/HCPCS: 36415; 80053; 82043; 82306; 83036; 84153; 85025

== ENCOUNTER 2020-07-20 01:53 | Emergency (ER) | payer OTHER ==
[~2020-07-20] VITALS: Ht 167.6 cm; Wt 86.2 kg
[~2020-07-20 01:53] MED LIST changes: -ASPI-1173 PO; +ASPI-1856 PO
[2020-07-20 02:02] VITALS: BP 169/92
[2020-07-20 03:13] VITALS: BP 169/92
== END 2020-07-20 03:13 | disposition home or self-care (01) ==
LOC: MED 01:53
DX: K59.00 Constipation, unspecified (principal); E11.9 Type 2 diabetes mellitus without complications; K21.9 Gastro-esophageal reflux disease without esophagitis; I10 Essential (primary) hypertension; Z79.899 Other long term (current) drug therapy; Z79.84 Long term (current) use of oral hypoglycemic drugs
CPT/HCPCS: 74021; 99283

== ENCOUNTER 2020-10-09 08:00 | Emergency (ER) | payer OTHER ==
[~2020-10-09] VITALS: Ht 167.6 cm; Wt 81.6 kg
[2020-10-09 08:06] VITALS: BP 142/91
--- NOTE | 2020-10-09 08:10 | NUR ---
BIB SELF C/O R EAR, R FACE, RIGHT HEAD PAIN X 4 DAYS. BLOOD SUGAR 229 AT THIS TIME. COVID TESTED NEGATIVE. PMH:PRE DM,HTN
--- NOTE | 2020-10-09 08:51 | NUR ---
Patient being evaluated by physician at bedside.
--- NOTE | 2020-10-09 09:49 | NUR ---
Patient discharged with v/s stable. Written and verbal after care instructions given and explained. Patient alert, oriented and verbalized understanding of instructions. Ambulatory with steady gait. All questions addressed prior to discharge. ID band removed. Patient advised to follow up with PMD. Rx of ciprodex given. Patient educated on indication of medication including possible reaction and side effects. Opportunity to ask questions provided and answered.
[2020-10-09 09:50] VITALS: BP 142/91
== END 2020-10-09 09:49 | disposition home or self-care (01) ==
LOC: MED 08:00
DX: H60.91 Unspecified otitis externa, right ear (principal); I10 Essential (primary) hypertension; K21.9 Gastro-esophageal reflux disease without esophagitis; R73.03 Prediabetes; Z79.899 Other long term (current) drug therapy
CPT/HCPCS: 99283

== ENCOUNTER 2021-03-25 08:01 | Outpatient (CLI) | payer OTHER ==
[2021-03-25 08:52] LABS: BASOPHILS # (AUTO) 0.1 K/uL (0.00-0.22); BASOPHILS % (AUTO) 0.8 % (0.0-2.0); EOSINOPHILS # (AUTO) 0.1 K/uL (0-0.4); EOSINOPHILS % (AUTO) 1.7 % (0.0-4.0); HEMATOCRIT 49.5 % (36-52); HEMOGLOBIN 16.6 g/dL (12.0-18.0); LYMPHOCYTES # (AUTO) 2.7 K/uL (2.0-11.5); LYMPHOCYTES % (AUTO) 34.5 % (20.5-51.1); MEAN CORPUSCULAR HEMOGLOBIN 31 pg (27-31); MEAN CORPUSCULAR HGB CONC 34 g/dL (33-37); MEAN CORPUSCULAR VOLUME 91.8 fL (80-94); MONOCYTES # (AUTO) 0.6 K/uL (0.8-1.0); NEUTROPHILS # (AUTO) 4.4 K/uL (1.8-7.7); PLATELET COUNT (AUTO) 249 K/uL (140-450); RED BLOOD CELL COUNT(AUTO) 5.39 MIL/uL (4.20-6.10); RED CELL DISTRIBUTION WIDTH 13.3 % (11.6-13.7); WHITE BLOOD COUNT (AUTO) 7.9 K/uL (4.8-10.8)
[2021-03-25 09:17] LABS: APPEARANCE,URINE CLEAR (CLEAR); BILIRUBIN,URINE NEGATIVE (NEGATIVE); BLOOD, URINE NEGATIVE (NEGATIVE); COLOR,URINE YELLOW (YELLOW); LEUKOCYTE ESTERASE ,URINE NEGATIVE (NEGATIVE); NITRITE, URINE NEGATIVE (NEGATIVE); PH,URINE 5.5 (5.0-9.0); UGLUCOSE 3+ (NEGATIVE)
[2021-03-25 09:33] LABS: ALBUMIN 4.1 g/dL (3.4-5.0); ANION GAP 14.2 (8-16); CARBON DIOXIDE 26.3 mmol/L (21-32); CREATININE 0.7 mg/dL (0.6-1.3); POTASSIUM 4.5 mmol/L (3.5-5.1); RBC,URINE 0-5 /HPF (0-5); THYROID STIMULATING HORMONE 2.34 uIU/mL (0.34-3.74); TOTAL BILIRUBIN 0.5 mg/dL (0.0-1.0); WBC,URINE 0-5 /HPF (0-5)
[2021-03-25 10:12] LABS: CHOL/HDL RATIO 6.4 (1-4.5)
[2021-03-26 10:07] LABS: PROSTATE SPEC AG TOTAL 0.8 ng/mL (0.0-4.0)
== END 2021-03-25 19:21 | disposition home or self-care (01) ==
LOC: MLB 08:01
PROVIDERS: ATTEND Family Medicine
DX: Z12.5 Encounter for screening for malignant neoplasm of prostate (principal); I10 Essential (primary) hypertension; E11.65 Type 2 diabetes mellitus with hyperglycemia; E55.9 Vitamin D deficiency, unspecified; E11.69 Type 2 diabetes mellitus with other specified complication; K29.50 Unspecified chronic gastritis without bleeding
CPT/HCPCS: 36415; 80053; 81001; 82043; 82306; 83036; 84153; 84443; 85025

== ENCOUNTER 2021-06-11 08:07 | Outpatient (CLI) | payer OTHER | END 2021-06-11 20:22 | disposition home or self-care (01) | LOC: MLB 08:07 | PROVIDERS: ATTEND Internal Medicine | DX: B96.81 Helicobacter pylori [H. pylori] as the cause of diseases classified elsewhere (principal) | CPT/HCPCS: 82272 ==

== ENCOUNTER 2021-07-06 09:01 | Outpatient (CLI) | payer OTHER | END 2021-07-06 22:15 | disposition home or self-care (01) | LOC: MLB 09:01 | PROVIDERS: ATTEND Internal Medicine Gastroenterology | DX: B96.81 Helicobacter pylori [H. pylori] as the cause of diseases classified elsewhere (principal) | CPT/HCPCS: 36415 ==

== ENCOUNTER 2022-04-11 15:07 | Emergency (ER) | payer OTHER ==
[~2022-04-11] VITALS: Ht 167.6 cm; Wt 85.3 kg
[~2022-04-11 15:07] MED LIST changes: +METF-346 PO; -METF500T PO
[2022-04-11 15:18] VITALS: BP 162/94
--- NOTE | 2022-04-11 15:21 | NUR ---
Mary barnes in [facility] - 04/11/22 at 1523 by [email or web address].
--- NOTE | 2022-04-11 15:23 | NUR ---
TENT 1.
--- NOTE | 2022-04-11 15:33 | NUR ---
BIB SELF C/O DIFFICULTY BREATHING, MID CHEST PAIN, FATIGUE X TODAY. CIVID TESTED POSITIVE. PMH: PRE DM, HTN. DENIES N/V/D; SKIN IS PINK/WARM/DRY; AAOX4 WITH EVEN AND STEADY GAIT; LUNGS CLEAR BL; HR TACHY 105 AT THIS TIME; PT DENIES ANY FEVER OR COUGH AT THIS TIME.
--- NOTE | 2022-04-11 15:33 | NUR ---
BIB SELF C/O DIFFICULTY BREATHING, MID CHEST PAIN, FATIGUE X TODAY. CIVID TESTED POSITIVE. PMH: PRE DM, HTN. DENIES N/V/D; SKIN IS PINK/WARM/DRY; AAOX4 WITH EVEN AND STEADY GAIT; LUNGS CLEAR BL; HR EVEN AND REGULAR; PT DENIES ANY FEVER OR COUGH AT THIS TIME.
--- NOTE | 2022-04-11 15:56 | NUR ---
BLOOD SUGAR 273 AT THIS TIME.
[2022-04-11 16:35] LABS: BASOPHILS # (AUTO) 0.1 K/uL (0.00-0.22); EOSINOPHILS # (AUTO) 0.1 K/uL (0-0.4); EOSINOPHILS % (AUTO) 1.6 % (0.0-4.0); HEMATOCRIT 48.8 % (36-52); HEMOGLOBIN 16.3 g/dL (12.0-18.0); LYMPHOCYTES % (AUTO) 23.7 % (20.5-51.1); MEAN CORPUSCULAR HEMOGLOBIN 31 pg (27-31); MEAN CORPUSCULAR HGB CONC 33 g/dL (33-37); MEAN CORPUSCULAR VOLUME 91.9 fL (80-94); MONOCYTES # (AUTO) 0.9 K/uL (0.8-1.0); MONOCYTES % (AUTO) 10.9 % (1.7-9.3); NEUTROPHILS # (AUTO) 5.3 K/uL (1.8-7.7); NEUTROPHILS % (AUTO) 62.8 % (42.2-75.2); PLATELET COUNT (AUTO) 221 K/uL (140-450); RED BLOOD CELL COUNT(AUTO) 5.31 MIL/uL (4.20-6.10); RED CELL DISTRIBUTION WIDTH 13.6 % (11.6-13.7); WHITE BLOOD COUNT (AUTO) 8.4 K/uL (4.8-10.8)
[2022-04-11 16:54] LABS: ALBUMIN 3.9 g/dL (3.4-5.0); ANION GAP 10.8 (8-16); ASPARTATE AMINOTRANSFERASE 28 U/L (15-37); CARBON DIOXIDE 26.2 mmol/L (21-32); CHLORIDE 100 mmol/L (98-107); CREATININE 0.9 mg/dL (0.6-1.3); GFR ARICAN-AMERICAN 112 mL/min (>90); GLUCOSE 217 mg/dL (74-106); SODIUM SERUM 133 mmol/L (136-145); TOTAL BILIRUBIN 0.3 mg/dL (0.0-1.0); UREA NITROGEN, BLOOD 9 mg/dL (7-18)
[2022-04-11] MEDS ORDERED: BENZONATATE 100 MG CAPLF PO ONE (17:30)
[2022-04-11] MEDS ORDERED: BENZ200C4 PO (17:37)
--- NOTE | 2022-04-11 18:48 | NUR ---
Patient discharged with v/s stable. Written and verbal after care instructions given and explained. Patient alert, oriented and verbalized understanding of instructions. Ambulatory with steady gait. All questions addressed prior to discharge. ID band removed. Patient advised to follow up with PMD. Rx of BENZONAATE given. Patient educated on indication of medication including possible reaction and side effects. Opportunity to ask questions provided and answered.
[2022-04-11 18:50] VITALS: BP 130/87
== END 2022-04-11 18:48 | disposition home or self-care (01) ==
LOC: MED 15:07
DX: U07.1 COVID-19 (principal); R07.2 Precordial pain; R06.02 Shortness of breath; R61 Generalized hyperhidrosis; E11.9 Type 2 diabetes mellitus without complications; K21.9 Gastro-esophageal reflux disease without esophagitis; I10 Essential (primary) hypertension; Z79.84 Long term (current) use of oral hypoglycemic drugs; Z79.82 Long term (current) use of aspirin; Z79.899 Other long term (current) drug therapy; Z98.890 Other specified postprocedural states
CPT/HCPCS: 36415; 71045; 80053; 84484; 85025; 93005; 99285; Q0092

== ENCOUNTER 2022-06-04 08:03 | Outpatient (CLI) | payer OTHER ==
[~2022-06-04 08:03] MED LIST changes: +BENZ200C4 PO
[2022-06-04 08:30] LABS: BASOPHILS % (AUTO) 0.6 % (0.0-2.0); EOSINOPHILS # (AUTO) 0.1 K/uL (0-0.4); HEMATOCRIT 49.6 % (36-52); HEMOGLOBIN 16.8 g/dL (12.0-18.0); LYMPHOCYTES # (AUTO) 2.2 K/uL (2.0-11.5); LYMPHOCYTES % (AUTO) 33.6 % (20.5-51.1); MEAN CORPUSCULAR HEMOGLOBIN 31 pg (27-31); MEAN CORPUSCULAR HGB CONC 34 g/dL (33-37); MEAN CORPUSCULAR VOLUME 91.4 fL (80-94); MONOCYTES # (AUTO) 0.6 K/uL (0.8-1.0); MONOCYTES % (AUTO) 8.6 % (1.7-9.3); NEUTROPHILS # (AUTO) 3.6 K/uL (1.8-7.7); NEUTROPHILS % (AUTO) 55.2 % (42.2-75.2); PLATELET COUNT (AUTO) 219 K/uL (140-450); RED BLOOD CELL COUNT(AUTO) 5.42 MIL/uL (4.20-6.10); RED CELL DISTRIBUTION WIDTH 13.8 % (11.6-13.7); WHITE BLOOD COUNT (AUTO) 6.6 K/uL (4.8-10.8)
[2022-06-04 08:45] LABS: ALBUMIN 4.3 g/dL (3.4-5.0); ANION GAP 12.4 (8-16); CARBON DIOXIDE 30.5 mmol/L (21-32); CHOL/HDL RATIO 4.6 (1-4.5); CREATININE 0.9 mg/dL (0.6-1.3); POTASSIUM 4.9 mmol/L (3.5-5.1); TOTAL BILIRUBIN 0.5 mg/dL (0.0-1.0)
[2022-06-05 09:06] LABS: MICROALBUMIN, UR RANDOM 4.7 ug/mL (Not Estab.)
== END 2022-06-04 22:11 | disposition home or self-care (01) ==
LOC: MLB 08:03
PROVIDERS: ATTEND Internal Medicine Geriatric Medicine
DX: Z00.00 Encounter for general adult medical examination without abnormal findings (principal); Z12.11 Encounter for screening for malignant neoplasm of colon; R35.1 Nocturia
CPT/HCPCS: 36415; 80053; 82043; 82272; 82306; 83036; 84154; 85025

== ENCOUNTER 2022-10-29 07:59 | Outpatient (CLI) | payer OTHER ==
[2022-10-29 09:09] LABS: BASOPHILS % (AUTO) 0.5 % (0.0-2.0); EOSINOPHILS # (AUTO) 0.1 K/uL (0-0.4); EOSINOPHILS % (AUTO) 1.8 % (0.0-4.0); HEMOGLOBIN 15.9 g/dL (12.0-18.0); LYMPHOCYTES # (AUTO) 1.9 K/uL (2.0-11.5); LYMPHOCYTES % (AUTO) 31.1 % (20.5-51.1); MEAN CORPUSCULAR HEMOGLOBIN 31 pg (27-31); MEAN CORPUSCULAR HGB CONC 33 g/dL (33-37); MEAN CORPUSCULAR VOLUME 92.5 fL (80-94); MONOCYTES # (AUTO) 0.5 K/uL (0.8-1.0); MONOCYTES % (AUTO) 8.9 % (1.7-9.3); NEUTROPHILS # (AUTO) 3.5 K/uL (1.8-7.7); NEUTROPHILS % (AUTO) 57.7 % (42.2-75.2); PLATELET COUNT (AUTO) 222 K/uL (140-450); RED BLOOD CELL COUNT(AUTO) 5.18 MIL/uL (4.20-6.10); RED CELL DISTRIBUTION WIDTH 13.7 % (11.6-13.7)
[2022-10-29 09:22] LABS: ALBUMIN 4.6 g/dL (3.4-5.0); ANION GAP 12.8 (8-16); CARBON DIOXIDE 30.5 mmol/L (21-32); CHOL/HDL RATIO 4.5 (1-4.5); CREATININE 0.8 mg/dL (0.6-1.3); POTASSIUM 4.3 mmol/L (3.5-5.1); THYROID STIMULATING HORMONE 1.99 uIU/mL (0.34-3.74); TOTAL BILIRUBIN 0.7 mg/dL (0.0-1.0)
[2022-10-30 12:07] LABS: MICROALBUMIN, UR RANDOM 3.8 ug/mL (Not Estab.)
== END 2022-10-29 21:31 | disposition home or self-care (01) ==
LOC: MLB 07:59
PROVIDERS: ATTEND Internal Medicine Geriatric Medicine
DX: Z12.11 Encounter for screening for malignant neoplasm of colon (principal); E11.9 Type 2 diabetes mellitus without complications; E78.5 Hyperlipidemia, unspecified
CPT/HCPCS: 36415; 80053; 82043; 82272; 82306; 83036; 84443; 85025

== ENCOUNTER 2023-01-08 06:23 | Outpatient (CLI) | payer OTHER ==
[2023-01-08 07:14] LABS: BASOPHILS % (AUTO) 0.5 % (0.0-2.0); EOSINOPHILS # (AUTO) 0.1 K/uL (0-0.4); EOSINOPHILS % (AUTO) 2.2 % (0.0-4.0); HEMOGLOBIN 15.7 g/dL (12.0-18.0); LYMPHOCYTES # (AUTO) 1.8 K/uL (2.0-11.5); LYMPHOCYTES % (AUTO) 29.5 % (20.5-51.1); MEAN CORPUSCULAR HEMOGLOBIN 31 pg (27-31); MEAN CORPUSCULAR HGB CONC 33 g/dL (33-37); MEAN CORPUSCULAR VOLUME 92.1 fL (80-94); MONOCYTES # (AUTO) 0.7 K/uL (0.8-1.0); MONOCYTES % (AUTO) 10.6 % (1.7-9.3); NEUTROPHILS # (AUTO) 3.6 K/uL (1.8-7.7); NEUTROPHILS % (AUTO) 57.2 % (42.2-75.2); PLATELET COUNT (AUTO) 188 K/uL (140-450); RED CELL DISTRIBUTION WIDTH 13.6 % (11.6-13.7); WHITE BLOOD COUNT (AUTO) 6.2 K/uL (4.8-10.8)
[2023-01-08 07:20] LABS: ANION GAP 14.1 (8-16); CARBON DIOXIDE 27.2 mmol/L (21-32); CREATININE 0.8 mg/dL (0.6-1.3); POTASSIUM 4.3 mmol/L (3.5-5.1); TOTAL BILIRUBIN 0.4 mg/dL (0.0-1.0)
[2023-01-08 07:34] LABS: CHOL/HDL RATIO 4.1 (1-4.5)
[2023-01-11 09:07] LABS: HEPATITIS B SURFACE ANTIBODY Non Reactive (.); HEPATITIS B SURFACE ANTIGEN Negative (Negative)
[2023-01-12 01:24] LABS: HEPATITIS C VIRUS ANTIBODY TO FOLLOW s/co (0.0 - 0.9)
== END 2023-01-08 20:27 | disposition home or self-care (01) ==
LOC: MLB 06:23
PROVIDERS: ATTEND Internal Medicine Geriatric Medicine
DX: E11.9 Type 2 diabetes mellitus without complications (principal); E78.5 Hyperlipidemia, unspecified; K76.0 Fatty (change of) liver, not elsewhere classified
CPT/HCPCS: 36415; 80053; 83036; 85025; 86706; 86803; 87340

== ENCOUNTER 2023-01-21 16:50 | Emergency (ER) | payer OTHER ==
[~2023-01-21] VITALS: Ht 167.6 cm; Wt 82.6 kg
[2023-01-21] MEDS ORDERED: AMOX1TAB8 PO (16:59)
[2023-01-21 17:01] VITALS: BP 103/63
[2023-01-21 17:03] VITALS: BP 103/63
--- NOTE | 2023-01-21 17:04 | NUR ---
Patient discharged with v/s stable. Written and verbal after care instructions given and explained. Patient alert, oriented and verbalized understanding of instructions. Ambulatory with steady gait. All questions addressed prior to discharge. ID band removed. Patient advised to follow up with PMD. Rx of AMOXICILLIN (SENT) given. Patient educated on indication of medication including possible reaction and side effects. Opportunity to ask questions provided and answered.
[2023-01-21] MEDS ORDERED: cefTRIAXone 1,000 MG VIAL ONE (17:05)
[2023-01-21] MEDS ORDERED: KETOROLAC 60 MG/2 ML VIAL IM ONE (17:05)
[2023-01-21] MEDS ORDERED: LIDOCAINE MPF 1% 5 ML ONE (17:05)
[2023-01-21] MEDS ORDERED: cefTRIAXone 1,000 MG in LIDOCAINE MPF 1% 2.1 ML IM ONE (17:05)
== END 2023-01-21 17:04 | disposition home or self-care (01) ==
LOC: MED 16:50
DX: H65.191 Other acute nonsuppurative otitis media, right ear (principal); E11.9 Type 2 diabetes mellitus without complications; I10 Essential (primary) hypertension; K21.9 Gastro-esophageal reflux disease without esophagitis; Z79.4 Long term (current) use of insulin; Z79.899 Other long term (current) drug therapy
CPT/HCPCS: 96372; 99284; J0696; J1885; J2001

== ENCOUNTER 2023-02-22 07:54 | Emergency (ER) | payer OTHER ==
[~2023-02-22] VITALS: Ht 167.6 cm; Wt 83.5 kg
[~2023-02-22 07:54] MED LIST changes: +AMOX1TAB8 PO
[2023-02-22 07:59] VITALS: BP 160/99
--- NOTE | 2023-02-22 08:05 | NUR ---
[place] [employer] REPORT #[id number]. OFFICER Judy ARVIZU.
--- NOTE | 2023-02-22 08:34 | NUR ---
PT AMBULATED TO ER BED 12
[2023-02-22] MEDS ORDERED: KETOROLAC 30 MG/ML VIAL IM ONE (08:45)
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
[2023-02-22] MEDS ORDERED: NAPR-1704 PO (09:23)
--- NOTE | 2023-02-22 09:50 | NUR ---
Patient discharged with v/s stable. Written and verbal after care instructions ABOUT HEAD INJURY AND SHOULDER PAIN given and explained. Patient alert, oriented and verbalized understanding of instructions. Ambulatory with steady gait. All questions addressed prior to discharge. ID band removed. Patient advised to follow up with PMD. Rx of NAPROXEN given. Patient educated on indication of medication including possible reaction and side effects. Opportunity to ask questions provided and answered.
== END 2023-02-22 09:07 | disposition home or self-care (01) ==
LOC: MED 07:54
DX: S40.011A Contusion of right shoulder, initial encounter (principal); S09.90XA Unspecified injury of head, initial encounter; W18.30XA Fall on same level, unspecified, initial encounter; Y93.89 Activity, other specified; Y92.89 Other specified places as the place of occurrence of the external cause; Y99.8 Other external cause status
CPT/HCPCS: 73030; 96372; 99283; J1885

== ENCOUNTER 2023-05-17 08:09 | Emergency (ER) | payer OTHER ==
[~2023-05-17] VITALS: Ht 167.6 cm; Wt 81.6 kg
[~2023-05-17 08:09] MED LIST changes: +NAPR-1704 PO
--- NOTE | 2023-05-17 08:17 | NUR ---
Mary barnes in ED - 05/17/23 at 0905 by [email or web address] MD at bedside assessing patient
[2023-05-17 08:30] VITALS: BP 165/93; PULSE 83; RESP 20; TEMP 97.3; O2SAT 99
--- NOTE | 2023-05-17 08:37 | NUR ---
pt ambulated to bed 11 without assistance
--- NOTE | 2023-05-17 08:39 | NUR ---
MD at bedside assessing patient
[2023-05-17] MEDS ORDERED: COROTSOL OT (08:48)
[2023-05-17] MEDS ORDERED: LIDO100S LEFT EAR (08:48)
[2023-05-17 09:02] VITALS: BP 165/93; PULSE 83; RESP 20; TEMP 97.3; O2SAT 99
--- NOTE | 2023-05-17 09:03 | NUR ---
Patient discharged with v/s stable. Written and verbal after care instructions given and explained. Patient alert, oriented and verbalized understanding of instructions. Ambulatory with steady gait. All questions addressed prior to discharge. ID band removed. Patient advised to follow up with PMD. Rx of cortisporin otic solution, lidocaine Hcl viscous given. Patient educated on indication of medication including possible reaction and side effects. Opportunity to ask questions provided and answered.
== END 2023-05-17 09:03 | disposition home or self-care (01) ==
LOC: MED 08:09
DX: H60.92 Unspecified otitis externa, left ear (principal); E11.9 Type 2 diabetes mellitus without complications; K21.9 Gastro-esophageal reflux disease without esophagitis; I10 Essential (primary) hypertension; F17.200 Nicotine dependence, unspecified, uncomplicated; Z79.899 Other long term (current) drug therapy; Z79.1 Long term (current) use of non-steroidal anti-inflammatories (NSAID); Z79.2 Long term (current) use of antibiotics; Z79.82 Long term (current) use of aspirin
CPT/HCPCS: 99283

== ENCOUNTER 2023-06-20 21:43 | Inpatient (IN) | payer OTHER ==
[~2023-06-20] VITALS: Ht 167.6 cm; Wt 84.4 kg
[~2023-06-20 21:43] MED LIST changes: +COROTSOL OT; +LIDO100S LEFT EAR
[2023-06-20 21:55] VITALS: BP 116/78; PULSE 89; RESP 20; TEMP 97.3; O2SAT 98
[2023-06-20 22:55] LABS: BASOPHILS % (AUTO) 0.5 % (0.0-2.0); EOSINOPHILS # (AUTO) 0.1 K/uL (0-0.4); EOSINOPHILS % (AUTO) 1.6 % (0.0-4.0); HEMATOCRIT 43.8 % (36-52); HEMOGLOBIN 14.7 g/dL (12.0-18.0); LYMPHOCYTES # (AUTO) 2.3 K/uL (2.0-11.5); LYMPHOCYTES % (AUTO) 35.2 % (20.5-51.1); MEAN CORPUSCULAR HEMOGLOBIN 31 pg (27-31); MEAN CORPUSCULAR HGB CONC 34 g/dL (33-37); MONOCYTES # (AUTO) 0.6 K/uL (0.8-1.0); MONOCYTES % (AUTO) 9.6 % (1.7-9.3); NEUTROPHILS # (AUTO) 3.5 K/uL (1.8-7.7); NEUTROPHILS % (AUTO) 53.1 % (42.2-75.2); PLATELET COUNT (AUTO) 165 K/uL (140-450); RED BLOOD CELL COUNT(AUTO) 4.76 MIL/uL (4.20-6.10); RED CELL DISTRIBUTION WIDTH 13.2 % (11.6-13.7); WHITE BLOOD COUNT (AUTO) 6.6 K/uL (4.8-10.8)
[2023-06-20 23:19] LABS: ALANINE AMINOTRANSFERASE 74 U/L (12-78); ALBUMIN 3.3 g/dL (3.4-5.0); ALKALINE PHOSPHATASE 69 U/L (50-136); ANION GAP 10.6 (8-16); ASPARTATE AMINOTRANSFERASE 34 U/L (15-37); CARBON DIOXIDE 26.6 mmol/L (21-32); CHLORIDE 101 mmol/L (98-107); GFR ARICAN-AMERICAN 98 mL/min (>90); GFR NON ARICAN-AMERICAN 81 mL/min (>90); GLUCOSE 353 mg/dL (74-106); LIPASE 152 U/L (73-393); POTASSIUM 4.2 mmol/L (3.5-5.1); SODIUM SERUM 134 mmol/L (136-145); TOTAL BILIRUBIN 0.3 mg/dL (0.0-1.0); TOTAL PROTEIN, SERUM 6.7 g/dL (6.4-8.2); UREA NITROGEN, BLOOD 17 mg/dL (7-18)
[2023-06-20] MEDS ORDERED: ASPIRIN 325 MG TAB PO ONE (23:40)
[2023-06-20] MEDS ORDERED: NACL 0.9% 1,000 ML IV ONE (23:40)
[2023-06-20] MEDS ORDERED: ASPIRIN 81 MG TAB.CHEW PO ONE (23:45)
[2023-06-21] VITALS (8 sets, daily range): BP systolic 116–147; BP diastolic 73–82; PULSE 69–92; RESP 18; TEMP 96.3–98.8; O2SAT 94–98
[2023-06-21] MEDS ORDERED: ZOLPIDEM 5 MG TAB PO PRN (00:25)
[2023-06-21] MEDS ORDERED: POTASSIUM CHLORIDE 10 MEQ TABER PO PRN (00:25)
[2023-06-21] MEDS ORDERED: HYDROcodone/APAP 7.5/325 MG 1 TAB PO PRN (00:25)
[2023-06-21] MEDS ORDERED: DOCUSATE SODIUM 100 MG GELCAP PO PRN (00:25)
[2023-06-21] MEDS ORDERED: ONDANSETRON 4 MG/2 ML VIAL IM/IVP PRN (00:25)
[2023-06-21] MEDS ORDERED: ACETAMINOPHEN 325 MG TAB PO PRN (00:25)
[2023-06-21] MEDS ORDERED: guaiFENesin DM 200/20 MG-10 ML 10 ML UDC PO PRN (00:25)
[2023-06-21] MEDS ORDERED: DEXTROSE 50% 50 ML SYR IVP PRN (00:30)
[2023-06-21] MEDS: NACL 0.9% 1,000 ML IV SCH ×2 (01:15→17:32)
[2023-06-21 05:17] LABS: BASOPHILS % (AUTO) 0.5 % (0.0-2.0); EOSINOPHILS # (AUTO) 0.1 K/uL (0-0.4); EOSINOPHILS % (AUTO) 1.7 % (0.0-4.0); HEMOGLOBIN 13.7 g/dL (12.0-18.0); LYMPHOCYTES # (AUTO) 2.6 K/uL (2.0-11.5); MEAN CORPUSCULAR HEMOGLOBIN 31 pg (27-31); MEAN CORPUSCULAR HGB CONC 34 g/dL (33-37); MEAN CORPUSCULAR VOLUME 92.5 fL (80-94); MONOCYTES # (AUTO) 0.7 K/uL (0.8-1.0); MONOCYTES % (AUTO) 9.7 % (1.7-9.3); NEUTROPHILS # (AUTO) 3.3 K/uL (1.8-7.7); NEUTROPHILS % (AUTO) 49.1 % (42.2-75.2); PLATELET COUNT (AUTO) 148 K/uL (140-450); RED BLOOD CELL COUNT(AUTO) 4.43 MIL/uL (4.20-6.10); RED CELL DISTRIBUTION WIDTH 13.3 % (11.6-13.7); WHITE BLOOD COUNT (AUTO) 6.7 K/uL (4.8-10.8)
[2023-06-21 05:59] LABS: ALBUMIN 3.1 g/dL (3.4-5.0); ANION GAP 12.9 (8-16); CALCIUM 8.6 mg/dL (8.5-10.1); CARBON DIOXIDE 25.1 mmol/L (21-32); CREATININE 0.7 mg/dL (0.6-1.3); TOTAL BILIRUBIN 0.4 mg/dL (0.0-1.0); TOTAL PROTEIN, SERUM 6.2 g/dL (6.4-8.2)
[2023-06-21] MEDS: INSULIN LISPRO SLIDING SCALE 100 UNITS/ML VIAL SUBQ PRN ×4 (06:44→20:38)
[2023-06-21] MEDS: BLOOD GLUCOSE MONITORING 1 DEV DEV FS SCH ×8 (07:30→20:37)
[2023-06-21] MEDS: metFORMIN 500 MG TAB PO SCH ×2 (08:06→16:31)
[2023-06-21] MEDS: ATORVASTATIN 20 MG TAB PO SCH (08:26)
[2023-06-21] MEDS: PANTOPRAZOLE 40 MG TABEC PO SCH (08:26)
[2023-06-21] MEDS: ECOTRIN 81 MG TABEC PO SCH (08:27)
[2023-06-21] MEDS ORDERED: METOPROLOL 25 MG TAB PO SCH (09:00)
[2023-06-21] MEDS ORDERED: lisinopriL 10 MG TAB PO SCH (09:00)
[2023-06-21] MEDS: carvediloL 12.5 MG TAB PO SCH (21:43)
[2023-06-22 04:14] VITALS: BP 127/78; PULSE 69; RESP 18; TEMP 98; O2SAT 95
[2023-06-22 05:30] LABS: BASOPHILS % (AUTO) 0.5 % (0.0-2.0); EOSINOPHILS # (AUTO) 0.1 K/uL (0-0.4); EOSINOPHILS % (AUTO) 1.5 % (0.0-4.0); HEMATOCRIT 44.4 % (36-52); HEMOGLOBIN 14.8 g/dL (12.0-18.0); LYMPHOCYTES # (AUTO) 2.8 K/uL (2.0-11.5); LYMPHOCYTES % (AUTO) 36.5 % (20.5-51.1); MEAN CORPUSCULAR HEMOGLOBIN 31 pg (27-31); MEAN CORPUSCULAR HGB CONC 33 g/dL (33-37); MEAN CORPUSCULAR VOLUME 92.7 fL (80-94); MONOCYTES # (AUTO) 0.6 K/uL (0.8-1.0); MONOCYTES % (AUTO) 7.6 % (1.7-9.3); NEUTROPHILS # (AUTO) 4.1 K/uL (1.8-7.7); NEUTROPHILS % (AUTO) 53.9 % (42.2-75.2); PLATELET COUNT (AUTO) 152 K/uL (140-450); RED BLOOD CELL COUNT(AUTO) 4.79 MIL/uL (4.20-6.10); RED CELL DISTRIBUTION WIDTH 13.5 % (11.6-13.7); WHITE BLOOD COUNT (AUTO) 7.6 K/uL (4.8-10.8)
[2023-06-22 05:39] LABS: ALBUMIN 3.1 g/dL (3.4-5.0); ANION GAP 8.8 (8-16); CALCIUM 8.3 mg/dL (8.5-10.1); CREATININE 0.7 mg/dL (0.6-1.3); POTASSIUM 3.8 mmol/L (3.5-5.1); TOTAL BILIRUBIN 0.4 mg/dL (0.0-1.0); TOTAL PROTEIN, SERUM 6.4 g/dL (6.4-8.2)
[2023-06-22] MEDS: INSULIN LISPRO SLIDING SCALE 100 UNITS/ML VIAL SUBQ PRN (06:40)
[2023-06-22] MEDS: BLOOD GLUCOSE MONITORING 1 DEV DEV FS SCH ×2 (06:41)
[2023-06-22 08:00] VITALS: PULSE 74; RESP 18; O2SAT 98
[2023-06-22] MEDS: metFORMIN 500 MG TAB PO SCH (08:50)
[2023-06-22] MEDS: ECOTRIN 81 MG TABEC PO SCH (08:51)
[2023-06-22] MEDS: PANTOPRAZOLE 40 MG TABEC PO SCH (08:51)
[2023-06-22] MEDS: ATORVASTATIN 20 MG TAB PO SCH (08:51)
[2023-06-22] MEDS: carvediloL 12.5 MG TAB PO SCH (08:51)
[2023-06-22] MEDS ORDERED: CLOPIDOGREL 75 MG TAB PO SCH (09:00)
[2023-06-22] MEDS ORDERED: lisinopriL 20 MG TAB PO SCH (09:00)
[2023-06-22] MEDS ORDERED: ISOSORBIDE MONONITRATE 30 MG TABER PO SCH (09:00)
[2023-06-22] MEDS ORDERED: ASPI-1822 PO (09:12)
[2023-06-22] MEDS ORDERED: ISOS30TA24 PO (09:12)
[2023-06-22] MEDS ORDERED: ATOR20TA PO (09:12)
[2023-06-22] MEDS ORDERED: LISI-487 PO (09:12)
[2023-06-22] MEDS ORDERED: CARV12.5 PO (09:12)
[2023-06-22] MEDS ORDERED: METF-346 PO (09:15)
[2023-06-22] MEDS: NACL 0.9% 1,000 ML IV SCH (09:45)
== END 2023-06-22 10:30 | disposition home or self-care (01) | DRG 92 ==
LOC: MED 21:43 → MTU 06-21 00:26
PROVIDERS: ADMIT Student in an Organized Health Care Education/Training Program; ATTEND Student in an Organized Health Care Education/Training Program
DX: R20.0 Anesthesia of skin (principal); E44.1 Mild protein-calorie malnutrition; E87.1 Hypo-osmolality and hyponatremia; R07.89 Other chest pain; E11.65 Type 2 diabetes mellitus with hyperglycemia; I25.118 Atherosclerotic heart disease of native coronary artery with other forms of angina pectoris; K21.9 Gastro-esophageal reflux disease without esophagitis; I10 Essential (primary) hypertension; E78.5 Hyperlipidemia, unspecified; Z68.30 Body mass index [BMI] 30.0-30.9, adult; Z79.899 Other long term (current) drug therapy; Z79.82 Long term (current) use of aspirin; Z90.49 Acquired absence of other specified parts of digestive tract; Z95.5 Presence of coronary angioplasty implant and graft; Z86.73 Personal history of transient ischemic attack (TIA), and cerebral infarction without residual deficits
CPT/HCPCS: 36415; 70450; 71045; 80053; 82948; 83690; 84484; 85025; 87081; 96360; 99285

== ENCOUNTER 2023-11-05 07:31 | Emergency (ER) | payer OTHER ==
[~2023-11-05] VITALS: Ht 167.6 cm; Wt 82.1 kg
[~2023-11-05 07:31] MED LIST changes: -AMOX1TAB8 PO; +ASPI-1822 PO; -ASPI-1856 PO; +ATOR20TA PO; -ATOR20TA40 PO; -BENZ200C4 PO; +CARV12.5 PO; -COROTSOL OT; +ISOS30TA24 PO; -LIDO100S LEFT EAR; +LISI-487 PO; -LISI30TA6 PO; -METO25TA PO; -NAPR-1704 PO
[2023-11-05 07:43] VITALS: BP 144/89; PULSE 92; RESP 16; TEMP 97.7; O2SAT 96
[2023-11-05] MEDS ORDERED: KETOROLAC 30 MG/ML VIAL IM ONE (08:05)
[2023-11-05] MEDS ORDERED: CYCLOBENZAPRINE 10 MG TAB PO ONE (08:05)
[2023-11-05] MEDS ORDERED: predniSONE 20 MG TAB PO ONE (08:05)
[2023-11-05] MEDS ORDERED: ACETAMINOPHEN EXTRA STRENGTH 500 MG TAB PO ONE (08:05)
[2023-11-05] MEDS ORDERED: CYCL-711 PO (08:50)
[2023-11-05] MEDS ORDERED: DICL20GE TP (08:50)
[2023-11-05] MEDS ORDERED: ACET-10509 PO (08:50)
[2023-11-05] MEDS ORDERED: IBUP-2213 PO (08:50)
[2023-11-05] MEDS ORDERED: PRED20TA5 PO (08:50)
[2023-11-05] MEDS ORDERED: GABA300C PO (08:51)
== END 2023-11-05 09:03 | disposition home or self-care (01) ==
LOC: MED 07:31
DX: M54.41 Lumbago with sciatica, right side (principal); E11.9 Type 2 diabetes mellitus without complications; K21.9 Gastro-esophageal reflux disease without esophagitis; I10 Essential (primary) hypertension; Z98.890 Other specified postprocedural states; Z79.899 Other long term (current) drug therapy; Z79.82 Long term (current) use of aspirin; Z79.1 Long term (current) use of non-steroidal anti-inflammatories (NSAID)
CPT/HCPCS: 96372; 99284; J1885; J7512

== ENCOUNTER 2023-11-11 09:33 | Outpatient (CLI) | payer OTHER ==
[~2023-11-11 09:33] MED LIST changes: +ACET-10509 PO; +CYCL-711 PO; +GABA300C PO; +IBUP-2213 PO; +PRED20TA5 PO
== END 2023-11-11 20:22 | disposition home or self-care (01) ==
LOC: MRD 09:33
PROVIDERS: ATTEND Family Medicine
DX: M47.817 Spondylosis without myelopathy or radiculopathy, lumbosacral region (principal); M25.78 Osteophyte, vertebrae
CPT/HCPCS: 72110

== ENCOUNTER 2023-11-29 06:39 | Outpatient (CLI) | payer OTHER ==
[2023-11-29 08:24] LABS: ALBUMIN 3.5 g/dL (3.4-5.0); ANION GAP 18.3 (8-16); CARBON DIOXIDE 23.9 mmol/L (21-32); CHOL/HDL RATIO 6.3 (1-4.5); CREATININE 0.7 mg/dL (0.6-1.3); POTASSIUM 4.2 mmol/L (3.5-5.1); TOTAL BILIRUBIN 0.3 mg/dL (0.0-1.0); TOTAL PROTEIN, SERUM 7.8 g/dL (6.4-8.2)
== END 2023-11-29 22:26 | disposition home or self-care (01) ==
LOC: MLB 06:39
PROVIDERS: ATTEND Family Medicine
DX: E11.65 Type 2 diabetes mellitus with hyperglycemia (principal)
CPT/HCPCS: 36415; 80053; 83036

== ENCOUNTER 2024-07-03 15:55 | Inpatient (IN) | payer OTHER ==
[~2024-07-03] VITALS: Ht 167.6 cm; Wt 83.0 kg
[~2024-07-03 15:55] MED LIST changes: -ACET-10509 PO; +ACET500T99 PO; -LISI-487 PO; +LISI-953 PO
[2024-07-03 16:08] VITALS: BP 150/86; PULSE 108; RESP 19; TEMP 98.7; O2SAT 96
[2024-07-03 17:48] LABS: BASOPHILS % (AUTO) 0.5 % (0.0-2.0); EOSINOPHILS # (AUTO) 0.1 K/uL (0-0.4); EOSINOPHILS % (AUTO) 0.9 % (0.0-4.0); HEMATOCRIT 46.5 % (36-52); HEMOGLOBIN 15.7 g/dL (12.0-18.0); LYMPHOCYTES # (AUTO) 1.2 K/uL (2.0-11.5); LYMPHOCYTES % (AUTO) 16.4 % (20.5-51.1); MEAN CORPUSCULAR HEMOGLOBIN 31 pg (27-31); MEAN CORPUSCULAR HGB CONC 34 g/dL (33-37); MEAN CORPUSCULAR VOLUME 91.4 fL (80-94); MONOCYTES # (AUTO) 0.7 K/uL (0.8-1.0); MONOCYTES % (AUTO) 9.2 % (1.7-9.3); NEUTROPHILS # (AUTO) 5.4 K/uL (1.8-7.7); PLATELET COUNT (AUTO) 179 K/uL (140-450); RED BLOOD CELL COUNT(AUTO) 5.08 MIL/uL (4.20-6.10); RED CELL DISTRIBUTION WIDTH 13.9 % (11.6-13.7); WHITE BLOOD COUNT (AUTO) 7.4 K/uL (4.8-10.8)
[2024-07-03 18:08] LABS: ANION GAP 13.6 (8-16); CALCIUM 8.6 mg/dL (8.5-10.1); CARBON DIOXIDE 28.5 mmol/L (21-32); CREATININE 0.9 mg/dL (0.6-1.3); POTASSIUM 4.1 mmol/L (3.5-5.1)
[2024-07-03 18:12] LABS: ALANINE AMINOTRANSFERASE 72 U/L (12-78); ALBUMIN 3.7 g/dL (3.4-5.0); ALKALINE PHOSPHATASE 78 U/L (50-136); ASPARTATE AMINOTRANSFERASE 35 U/L (15-37); BILIRUBIN,DIRECT 0.1 mg/dL (0.0-0.3); TOTAL PROTEIN, SERUM 7.3 g/dL (6.4-8.2)
[2024-07-03 18:15] LABS: TOTAL BILIRUBIN 0.4 mg/dL (0.0-1.0)
[2024-07-03] MEDS: NACL 0.9% 500 ML IV ONE (18:35)
[2024-07-03] MEDS: ASPIRIN 325 MG TAB PO ONE (18:36)
[2024-07-03 19:06] LABS: FLU A ANTIGEN negative (NEGATIVE); FLU B ANTIGEN NEGATIVE (NEGATIVE)
[2024-07-03] MEDS ORDERED: ONDANSETRON 4 MG/2 ML VIAL IVP PRN (20:00)
[2024-07-03] MEDS ORDERED: HYDROcodone/APAP 5/325 MG 1 TAB TAB PO PRN (20:00)
[2024-07-03] MEDS ORDERED: GABAPENTIN 300 MG CAP PO PRN (20:00)
[2024-07-03] MEDS ORDERED: LORazepam 1 MG TAB PO PRN (20:00)
[2024-07-03] MEDS ORDERED: remdesivir COMMUNICATION ORDER 1 EA MISC MC PRN (20:10)
[2024-07-03] MEDS ORDERED: NACL 0.9% IV ONE (21:00)
[2024-07-03] MEDS ORDERED: REMDESIVIR IV ONE (21:00)
[2024-07-03] MEDS: carvediloL 12.5 MG TAB PO SCH (21:15)
[2024-07-03 21:52] VITALS: BP 154/91; PULSE 102; RESP 18; RESP 20; TEMP 97.2; O2SAT 95
[2024-07-03] MEDS: ZOLPIDEM 5 MG TAB PO PRN (22:41)
[2024-07-03 23:42] VITALS: O2SAT 95
[2024-07-04] VITALS (7 sets, daily range): BP systolic 130–141; BP diastolic 72–84; PULSE 85–96; RESP 16–18; TEMP 97.6–98.7; O2SAT 94–98
[2024-07-04 07:03] LABS: BASOPHILS % (AUTO) 0.4 % (0.0-2.0); EOSINOPHILS # (AUTO) 0.1 K/uL (0-0.4); EOSINOPHILS % (AUTO) 1.4 % (0.0-4.0); HEMATOCRIT 46.5 % (36-52); HEMOGLOBIN 15.7 g/dL (12.0-18.0); LYMPHOCYTES # (AUTO) 1.6 K/uL (2.0-11.5); LYMPHOCYTES % (AUTO) 25.3 % (20.5-51.1); MEAN CORPUSCULAR HEMOGLOBIN 31 pg (27-31); MEAN CORPUSCULAR HGB CONC 34 g/dL (33-37); MEAN CORPUSCULAR VOLUME 90.4 fL (80-94); MONOCYTES # (AUTO) 0.8 K/uL (0.8-1.0); MONOCYTES % (AUTO) 11.7 % (1.7-9.3); NEUTROPHILS % (AUTO) 61.2 % (42.2-75.2); PLATELET COUNT (AUTO) 169 K/uL (140-450); RED BLOOD CELL COUNT(AUTO) 5.14 MIL/uL (4.20-6.10); RED CELL DISTRIBUTION WIDTH 13.9 % (11.6-13.7); WHITE BLOOD COUNT (AUTO) 6.5 K/uL (4.8-10.8)
[2024-07-04 07:26] LABS: ALBUMIN 3.5 g/dL (3.4-5.0); ANION GAP 15.3 (8-16); CALCIUM 8.6 mg/dL (8.5-10.1); CARBON DIOXIDE 24.5 mmol/L (21-32); CREATININE 0.7 mg/dL (0.6-1.3); PHOSPHORUS 3.3 mg/dL (2.5-4.9); POTASSIUM 3.8 mmol/L (3.5-5.1); TOTAL BILIRUBIN 0.6 mg/dL (0.0-1.0); TOTAL PROTEIN, SERUM 7.3 g/dL (6.4-8.2)
[2024-07-04] MEDS ORDERED: remdesivir CLINICAL MONITORING 1 EA MISC MC PRN (07:40)
[2024-07-04] MEDS: REMDESIVIR. 200 MG in NACL 0.9% 100 ML IV SCH (08:24)
[2024-07-04] MEDS ORDERED: NACL 0.9% IV ONE (09:00)
[2024-07-04] MEDS ORDERED: REMDESIVIR IV ONE (09:00)
[2024-07-04] MEDS: MEDS-TO-BEDS MC SCH (09:27)
[2024-07-04] MEDS: DOCUSATE SODIUM 100 MG GELCAP PO SCH (09:31)
[2024-07-04] MEDS: ATORVASTATIN 20 MG TAB PO SCH (09:32)
[2024-07-04] MEDS: ASPIRIN 81 MG TAB.CHEW PO SCH (09:33)
[2024-07-04] MEDS: lisinopriL 20 MG TAB PO SCH (09:33)
[2024-07-04] MEDS: ENOXAPARIN 40 MG/0.4 ML SYR SUBQ SCH (09:35)
[2024-07-04] MEDS ORDERED: METF-346 PO (15:11)
[2024-07-04] MEDS ORDERED: LISI-953 PO (15:11)
[2024-07-04] MEDS ORDERED: NIRM1TAB7 PO (15:11)
[2024-07-05] MEDS ORDERED: NACL 0.9% IV SCH (09:00)
[2024-07-05] MEDS ORDERED: REMDESIVIR IV SCH (09:00)
[2024-07-05] MEDS ORDERED: REMDESIVIR. 100 MG in NACL 0.9% 100 ML IV SCH (09:00)
== END 2024-07-04 16:35 | disposition home or self-care (01) | DRG 137 ==
LOC: MED 15:55 → MMU 19:57 → MTU 21:22
PROVIDERS: ADMIT Hospitalist; ATTEND Hospitalist
PROC: XW033E5 Introduction of Remdesivir Anti-infective into Peripheral Vein, Percutaneous Approach, New Technology Group 5 (ICD-10-PCS; principal; 2024-07-04)
DX: U07.1 COVID-19 (principal); E11.9 Type 2 diabetes mellitus without complications; I10 Essential (primary) hypertension; K21.9 Gastro-esophageal reflux disease without esophagitis; Z79.899 Other long term (current) drug therapy; Z95.5 Presence of coronary angioplasty implant and graft; Z79.82 Long term (current) use of aspirin
CPT/HCPCS: 36415; 71045; 80048; 80053; 80076; 83880; 84100; 84484; 85025; 87081; 93005; 96360; 99285; J1650; J7030